=== PATIENT | female | born 2000 | race Caucasian/White ===

== ENCOUNTER 2019-02-25 09:44 | Emergency (ER) | payer SELFPAY ==
[2019-02-25 10:04] LABS: #Eosinphils 0.1 thou/uL (0.0-0.7); #Lymphocytes 1.3 thou/uL (1.20-3.40); #Monocytes 0.8 thou/uL (0.11-0.59); #Neutrophils 3.7 thou/uL (1.40-6.50); %Basophils 0.5 % (0.0-1.0); %Lymphocytes 21.9 % (28.0-48.0); %Monocytes 12.7 % (0.0-4.0); %Neutrophils 62.9 % (31.0-61.0); Hemoglobin 14.1 g/dL (12.0-16.0); Mean Corpuscular HGB CONC 33.9 g/dL (32.0-36.0); Mean Corpuscular Volume 91.2 fL (78.0-98.0); Mean Platelet Volume 7.1 fL (7.4-10.4); Platelet Count 146 thou/uL (130-400); Red Blood Cell (RBC) Count 4.54 mill/uL (4.00-5.20); White Blood Cell (WBC) Count 5.9 thou/uL (4.8-10.8)
[2019-02-25 10:15] LABS: BHCG - Serum Negative (NEGATIVE); Pregs Control Background? CLEAR/WHITE (CLR/WHITE); Pregs Control Bar Appear? YES (CONTROL BAR)
[2019-02-25 10:27] LABS: ALT (SGPT) 17 U/L (8-55); AST (SGOT) 25 U/L (5-30); Albumin 4.1 g/dL (3.5-5.0); Alkaline Phosphatase 48 U/L (40-150); Anion Gap 13 mmol/L (10-20); BUN (Urea Nitrogen) 15 mg/dL (8.4-21.0); Bilirubin, Total 1.1 mg/dL (0.2-1.2); Calc. Creatinine Clearance 0 mL/min (70-130); Calcium 9.3 mg/dL (7.8-10.44); Carbon Dioxide 23 mmol/L (22-29); Chloride 104 mmol/L (98-107); Estimated GFR-MDRD 86; Globulin 3.1 g/dL (2.4-3.5); Glucose 106 mg/dL (70-105); Lipase 21 U/L (8-78); Potassium 3.9 mmol/L (3.5-5.1); Protein, Total 7.2 g/dL (6.0-8.3); Sodium 136 mmol/L (136-145)
[2019-02-25 10:33] LABS: Acetaminophen Less than 6.0 mcg/mL (10.0-30.0); Alcohol Less than 10 mg/dL (Less than 10); Salicylate Less than 8.0 mg/dL (15.0-30.0)
--- NOTE | 2019-02-25 10:54 | CT ---
EXAM: CT ABDOMEN AND PELVIS HISTORY: Abdominal pain. COMPARISON: None. Procedure: Multiple contiguous axial images were obtained and a CT of the abdomen and pelvis with IV contrast. C oronal reformats were performed. FINDINGS: Lower Chest: within normal limits. Vessels: Normal caliber aorta. Heart: Normal heart size. No pericardial fluid. Abdomen: Portal vein:Portal vein is patent. Nonspecific periportal edema. Gallbladder: No calcified gallstones. Normal caliber wall. Liver: Hypoattenuation of the liver adjacent to the falciform ligament likely representing a focal ar ea of fatty change. No enhancing masses in the liver Pancreas: within normal limits. Spleen: within normal limits. Adrenals: within normal limits. Kidneys: Symmetric enhancement. No obstructive uropathy Peritoneum: Limited evaluation due to decreased visceral fat. No mass, lymphadenopathy or free air or ascites. Bowel: Limited evaluation due to lack of oral contrast hydration. Nonspecific fluid-filled loops of m id small bowel. Evidence of bowel wall thickening involving proximal small bowel loops. Ileocecal junction appears to be unremarkable. Suggestion of a normal caliber appendix. Unremarkable colon. Occ asional diverticulum in the left hemicolon. No diverticulitis. Mesentery and Retroperitoneum: No enlarged mesenteric or retroperitoneal lymph nodes. Abdominal Wall: within normal limits. Pelvis: Reproductive Organs: Uterus and left adnexa are unremarkable. Hypodensity in the right adnexa measure s 1.5 x 1.5 cm and may represent a complex cyst. Pelvis: Small amount of free fluid in the pelvis, likely physiologic. No mass, lymphadenopathy or julia e air Bladder: within normal limits. Bones: within normal limits. IMPRESSION: 1. Limited evaluation due to decreased visceral fat. 2. Suggestion of a normal caliber appendix. 3. Nonspecific fluid-filled loops of small bowel. Additionally, there appears to be mucosal thickenin g involving jejunal loops. Continued surveillance of this concern for ileus or a developing obstructive process. 4. Right ovarian hypodensity likely representing a complex cyst. Pelvic ultrasound if clinically orin anted.
--- NOTE | 2019-02-25 13:35 | ULT ---
Exam: Transabdominal and endovaginal pelvic ultrasound HISTORY:Pain. Possible right ovarian cyst noted on recent CT COMPARISON: None TECHNIQUE: Transabdominal and endovaginal imaging of the pelvis is performed. Ovaries are interrogate d with grayscale, color flow, Doppler imaging and spectral wave form analysis FINDINGS: Uterus: No myometrial masses. Uterus measurin.2 x 3.7 x 5.6 cm. Endometrium: Homogeneous echotexture. Endometrium diameter: 1.0 cm. . Free fluid: Small amount of free fluid in the right adnexa Left ovary: Normal echotexture. Left ovary measurements: 1.5 x 2.0 x 3.3 cm Right ovary: Isoechoic focus in the right ovary measuring 2.0 x 1.8 x 1.9 cm Right ovary measurement: 4.1 x 3.0 x 2.6 cm cm Ovarian Doppler: There is vascular flow to the left and right ovary. IMPRESSION: 1. Isoechoic focus in the right ovary which may represent a complex or hemorrhagic cyst. Better inter rogation with a nonemergent pelvic MRI is recommended.
[2019-02-25] MEDS ORDERED: ISOVUE-370 76%-LOCM 1 ML ONE (13:55)
[2019-02-25 14:01] LABS: Amphetamine Not Detected (NotDetected); Barbiturates Screen Not Detected (NotDetected); Benzodiazepine Screen Not Detected (NotDetected); Cocaine Metabolite Screen Not Detected (NotDetected); Medtox Control Line Valid? VALID (VALID); Medtox Reader # READER 4; Methadone Not Detected (NotDetected); Methamphetamine Not Detected (NotDetected); Opiate Screen Detected (NotDetected); Oxycodone Screen Not Detected (NotDetected); Phencyclidine (PCP) Not Detected (NotDetected); THC/Cannabinoid Screen Detected (NotDetected); Tricyclic Screen Not Detected (NotDetected)
== END 2019-02-25 13:51 | disposition home or self-care (01) ==
LOC: ERS 09:44
DX: N83.201 Unspecified ovarian cyst, right side (principal)
CPT/HCPCS: 36415; 74177; 76856; 80053; 80306; 80307; 83605; 83690; 84703; 85025; 93005; Q9966